=== PATIENT | female | born 1970 | race African-American/Black ===

== ENCOUNTER 2018-01-05 02:22 | Emergency (ER) | payer SELFPAY ==
[~2018-01-05] VITALS: Ht 167.6 cm; Wt 77.1 kg
[2018-01-05 02:28] VITALS: BP_SYST 121
[2018-01-05] MEDS ORDERED: IBUPROFEN 800 MG TABLET PO ONE (03:15)
[2018-01-05] MEDS ORDERED: HYDROcodone/ACETAMIN 5-325 MG TAB (NORCO/ VICODIN) PO ONE (03:45)
[2018-01-05 04:20] VITALS: BP_SYST 121
== END 2018-01-05 04:17 | disposition home or self-care (01) ==
LOC: SED 02:22
DX: S93.401A Sprain of unspecified ligament of right ankle, initial encounter (principal); Z88.2 Allergy status to sulfonamides; W09.8XXA Fall on or from other playground equipment, initial encounter; Y93.89 Activity, other specified; Y92.89 Other specified places as the place of occurrence of the external cause; Y99.8 Other external cause status
CPT/HCPCS: 99284